=== PATIENT | male | born 1960 | race Caucasian/White ===

== ENCOUNTER 2020-02-06 23:15 | Observation (INO) ==
[2020-02-06] MEDS ORDERED: OPTIRAY 320 125ml IV PRN (23:33)
[2020-02-06 23:46] LABS: Basophils # (auto) 0.03 K/uL (0-0.2); Basophils % (auto) 0.4 %; Eosinophils # (auto) 0.35 K/uL (0-0.5); Eosinophils % (auto) 4.8 %; Hematocrit (blood only) 41.1 % (42-52); Hemoglobin 14.7 g/dL (14.0-18.0); Immature Granulocytes # (auto) 0.02 K/uL (0.00-0.02); Immature Granulocytes % (auto) 0.3 %; Lymphocytes # (auto) 1.81 K/uL (1.2-3.4); Lymphocytes % (auto) 24.7 %; Mean Corpuscular Hgb Conc 35.8 g/dL (32-36); Mean Corpuscular Volume 89.3 fL (80-100); Mean Platelet Volume 10.5 fL (7.4-10.4); Monocytes % (auto) 8.2 %; Neutrophils # (auto) 4.51 K/uL (1.4-6.5); Neutrophils % (auto) 61.6 %; Platelet Count 119 K/uL (130-400); White Blood Count 7.32 K/uL (4.8-10.8)
[2020-02-06] MEDS ORDERED: ASPIRIN CHEW 324 MG PO STA (23:51)
[2020-02-06] MEDS ORDERED: MAGNESIUM SULFATE / D5W 1 GM/100 ML BAG IV ONE (23:51)
[2020-02-06] MEDS ORDERED: SODIUM CHLORIDE 0.9% 1000ML 1,000 ML IV ONE (23:51)
[2020-02-06 23:55] LABS: iSTAT Creatinine 0.9 mg/dl (0.6-1.3); iSTAT Hemoglobin 13.9 g/dl (14.0-18.0); iSTAT Ionized Calcium 1.18 mmol/l (1.12-1.32); iSTAT Potassium 3.9 mmol/L (3.3-5.0)
--- NOTE | 2020-02-06 23:56 | Emergency Department Note ---
History of Present Illness General Chief complaint: Neuro Symptoms/Deficit Stated complaint: DIZZINESS,ONE SIDED WEAKNESS Time Seen by Provider: 02/06/20 23:24 Source: patient and RN notes reviewed Mode of arrival: ambulatory Limitations: no limitations History of Present Illness Provider complaint: Rt sided weakness Onset (ago): hour(s) greater than 10 Location: upper extremity, lower extremity and right Severity: moderate Associated symptoms: + other (difficulty speaking) Treatments prior to arrival: none This is a 59-year-old male who presents the emergency department complaining of right-sided weakness. The patient reports his weakness started approximately 12 hours ago. The patient is traveling up here from [place] for a visit. He reports he is a diabetic and takes insulin. The patient also reports he has been having difficulty getting words out. The patient has never had anything like this before. He does have a history of right knee replacement. Home Medications Home Medications Medication Instructions Recorded Confirmed Type atorvastatin 20 mg PO HS 02/07/20 02/07/20 History carvedilol 12.5 mg PO DAILY 02/07/20 02/07/20 History insulin glargine [Lantus Solostar 36 unit SUBCUT HS 02/07/20 02/07/20 History U-100 Insulin] losartan 100 mg PO DAILY 02/07/20 02/07/20 History metformin 2,000 mg PO HS 02/07/20 02/07/20 History pioglitazone [Actos] 30 mg PO DAILY 02/07/20 02/07/20 History Allergies Allergy/AdvReac Type Severity Reaction Status Date / Time No Known Allergies Allergy Unverified 02/07/20 00:35 Past Med/Surg History Surgical History (Updated 02/07/20 @ 00:00 by Vikram Reddy MD) Status post right knee replacement Social History Preferred Language: Thai Communication Ability: Effective [employer] Head Required: No Beliefs That Will Affect Care: None Current Living Situation: Alone Other Information That Helps Us Care for You: No Feels Safe at Home: Yes Safety Concerns: Feels Safe At This Time Smoking Status: Never smoker Hx Alcohol Use: No Hx Substance Use: No Review of Systems A total of 10 systems reviewed and were otherwise negative Physical Exam Vital Signs Vital Signs - 24 hr 02/06/20 23:18 02/06/20 23:27 02/06/20 23:35 Temperature 36.5 C Temperature Source Oral Pulse Rate 73 78 80 Pulse Rate from SpO2 Sensor Respiratory Rate 18 21 22 Respiratory Effort / Characteristics Non-Labored Spontaneous Respiratory Depth Normal Blood Pressure 175/108 H 180/118 H Blood Pressure Mean 130 143 Pulse Oximetry 94 Oxygen Delivery Method Room Air Sepsis Recent Fever Within 48 Hours No Sepsis Action Taken by Nursing No Action Required 02/06/20 23:40 02/06/20 23:41 02/06/20 23:59 Temperature Temperature Source Pulse Rate 72 80 Pulse Rate from SpO2 Sensor 72 Respiratory Rate 23 17 Respiratory Effort / Characteristics Respiratory Depth Blood Pressure 156/105 H Blood Pressure Mean 114 Pulse Oximetry 94 95 Oxygen Delivery Method Room Air Sepsis Recent Fever Within 48 Hours Sepsis Action Taken by Nursing 02/07/20 00:01 02/07/20 00:02 02/07/20 00:10 Temperature Temperature Source Pulse Rate 71 69 73 Pulse Rate from SpO2 Sensor 72 70 73 Respiratory Rate 16 19 16 Respiratory Effort / Characteristics Respiratory Depth Blood Pressure 183/96 H Blood Pressure Mean 112 Pulse Oximetry 96 95 96 Oxygen Delivery Method Room Air Sepsis Recent Fever Within 48 Hours Sepsis Action Taken by Nursing 02/07/20 00:20 02/07/20 00:30 02/07/20 00:40 Temperature Temperature Source Pulse Rate 71 74 75 Pulse Rate from SpO2 Sensor 71 74 77 Respiratory Rate 19 17 19 Respiratory Effort / Characteristics Respiratory Depth Blood Pressure 159/93 H Blood Pressure Mean 112 Pulse Oximetry 97 94 95 Oxygen Delivery Method Sepsis Recent Fever Within 48 Hours Sepsis Action Taken by Nursing 02/07/20 00:50 02/07/20 01:00 02/07/20 01:10 Temperature Temperature Source Pulse Rate 73 72 69 Pulse Rate from SpO2 Sensor 72 73 70 Respiratory Rate 15 16 24 Respiratory Effort / Characteristics Respiratory Depth Blood Pressure 156/91 H Blood Pressure Mean 114 Pulse Oximetry 94 94 96 Oxygen Delivery Method Sepsis Recent Fever Within 48 Hours Sepsis Action Taken by Nursing 02/07/20 01:21 Temperature Temperature Source Pulse Rate 71 Pulse Rate from SpO2 Sensor 71 Respiratory Rate 21 Respiratory Effort / Characteristics Respiratory Depth Blood Pressure Blood Pressure Mean Pulse Oximetry 96 Oxygen Delivery Method Sepsis Recent Fever Within 48 Hours Sepsis Action Taken by Nursing GENERAL: Patient is a healthy-appearing well-nourished male HEAD: Normocephalic atraumatic EYES: Ocular movements intact pupils equal and react to light OROPHARYNX mucous membranes are moist no exudates present no erythema or edema present NECK: Supple no nuchal rigidity CHEST: Good equal expansion LUNGS: Clear and equal to auscultation CARDIAC: Normal S1 and S2 ABDOMEN: Soft nontender no guarding BACK: No CVA tenderness EXTREMITIES: No pain upon palpation 4/5 strength Rt arm, Rt leg; in all groups no clubbing cyanosis or edema NEURO: Patient is following commands is answering questions appropriately. Alert and oriented x3 Cranial Nerves 2-12 grossly intact Course Administered Medications Sodium Chloride (Nss 1000ml) 1,000 mls @ 80 mls/hr IV .[id number] CNONIE Stop: 03/08/20 02:23 Last Admin: 02/07/20 03:15 Dose: 80 mls/hr Documented by: [id number] Discontinued Medications Aspirin (Aspirin) 324 mg PO NOW STA Stop: 02/06/20 23:52 Last Admin: 02/07/20 00:05 Dose: 324 mg Documented by: [id number] Magnesium Sulfate/Dextrose (Magnesium Sulfate / D5w) 1 gm in 100 mls @ 100 mls/ hr IV ONE ONE Stop: 02/07/20 00:50 Last Infusion: 02/07/20 01:02 Dose: 0 mls/hr Documented by: [id number] Admin: 02/07/20 00:05 Dose: 100 mls/hr Documented by: [id number] Sodium Chloride (Nss 1000ml) 1,000 mls @ 999 mls/hr IV .[id number] ONE Stop: 02/07/20 00:51 Last Infusion: 02/07/20 01:02 Dose: 0 mls/hr Documented by: [id number] Admin: 02/07/20 00:05 Dose: 999 mls/hr Documented by: [id number] Ioversol (Optiray 320 125ml) 119 ml IV ONCE PRN PRN Reason: Interaction Checking Stop: 02/10/20 23:32 Last Admin: 02/06/20 23:34 Dose: 119 ml Documented by: [id number] Medical Decision Making Differential Diagnosis Infection, dehydration, metabolic abnormality, hypo/hyperglycemia, electrolyte disturbance, anemia, hypoxia, cardiac sources, intracerebral event, toxicologic, neurologic, as well as other pathologies. Medical Records Attestation: I reviewed the patient's medical records. Home Medications Current Medication List: was personally reviewed by me Laboratory Data Attestation: I reviewed the patient's lab results. Result diagrams: 02/06/20 23:38 02/06/20 23:38 Lab Results 02/06/20 02/06/20 02/06/20 Range/Units 22:38 23:38 23:38 WBC 7.32 (4.8-10.8) K/uL RBC 4.60 L (4.7-6.1) M/uL Hgb 14.7 (14.0-18.0) g/dL POC Hgb (14.0-18.0) g/dl Hct 41.1 L (42-52) % POC Hct (42-52) % MCV 89.3 (80-100) fL MCH 32.0 (25-34) pg MCHC 35.8 (32-36) g/dL RDW Std Deviation 46.0 (36.4-46.3) fL RDW Coeff of Sathya 14.0 (11.5-14.5) % Plt Count 119 L (130-400) K/uL MPV 10.5 H (7.4-10.4) fL Immature Gran % (Auto) 0.3 % Neut % (Auto) 61.6 % Lymph % (Auto) 24.7 % Hardin % (Auto) 8.2 % Eos % (Auto) 4.8 % Baso % (Auto) 0.4 % Immature Gran # (Auto) 0.02 (0.00-0.02) K/uL Neut # (Auto) 4.51 (1.4-6.5) K/uL Lymph # (Auto) 1.81 (1.2-3.4) K/uL Hardin # (Auto) 0.60 H (0.11-0.59) K/uL Eos # (Auto) 0.35 (0-0.5) K/uL Baso # (Auto) 0.03 (0-0.2) K/uL PT 11.3 (9.0-12.0) Seconds INR 1.1 (0.9-1.1) APTT 30.3 (21.0-31.0) Seconds PTT Ratio 1.1 POC Sodium (135-144) mmol/L Sodium (136-145) mmol/L POC Potassium (3.3-5.0) mmol/L Potassium (3.5-5.1) mmol/L POC Chloride (101-112) mmol/L Chloride (98-107) mmol/L Carbon Dioxide (21-32) mmol/L POC Total CO2 (24-31) mEq/l Anion Gap (3-11) POC Anion Gap (16-25) mmol/L POC BUN (7-18) mg/dl BUN (7-18) mg/dl Creatinine (0.6-1.4) mg/dl POC Creatinine (0.6-1.3) mg/dl Est Cr Clr Drug Dosing ml/min Est GFR ( Amer) Est GFR (Non-Af Amer) BUN/Creatinine Ratio (10-20) Glucose (70-99) mg/dl POC Glucose (other) (70-99) mg/dl Calcium (8.5-10.1) mg/dl POC Ioniz Calcium Shantell (1.12-1.32) mmol/l Magnesium (1.8-2.4) mg/dl Total Bilirubin (0.2-1) mg/dl AST (15-37) U/L ALT (12-78) U/L Alkaline Phosphatase (45-117) U/L Total Creatine Kinase 89 (39-308) U/L CK-MB (CK-2) 1.2 (0.5-3.6) ng/ml CK/CKMB % Calc 1.3 (0-3.0) Troponin I (0-0.045) ng/ml Total Protein (6.4-8.2) gm/dl Albumin (3.4-5.0) gm/dl Globulin (2.5-4.0) gm/dl Albumin/Globulin Ratio (0.9-2) 02/06/20 02/06/20 Range/Units 23:38 23:42 WBC (4.8-10.8) K/uL RBC (4.7-6.1) M/uL Hgb (14.0-18.0) g/dL POC Hgb 13.9 L (14.0-18.0) g/dl Hct (42-52) % POC Hct 41 L (42-52) % MCV (80-100) fL MCH (25-34) pg MCHC (32-36) g/dL RDW Std Deviation (36.4-46.3) fL RDW Coeff of Sathya (11.5-14.5) % Plt Count (130-400) K/uL MPV (7.4-10.4) fL Immature Gran % (Auto) % Neut % (Auto) % Lymph % (Auto) % Hardin % (Auto) % Eos % (Auto) % Baso % (Auto) % Immature Gran # (Auto) (0.00-0.02) K/uL Neut # (Auto) (1.4-6.5) K/uL Lymph # (Auto) (1.2-3.4) K/uL Hardin # (Auto) (0.11-0.59) K/uL Eos # (Auto) (0-0.5) K/uL Baso # (Auto) (0-0.2) K/uL PT (9.0-12.0) Seconds INR (0.9-1.1) APTT (21.0-31.0) Seconds PTT Ratio POC Sodium 138 (135-144) mmol/L Sodium 137 (136-145) mmol/L POC Potassium 3.9 (3.3-5.0) mmol/L Potassium 3.8 (3.5-5.1) mmol/L POC Chloride 102 (101-112) mmol/L Chloride 105 (98-107) mmol/L Carbon Dioxide 26 (21-32) mmol/L POC Total CO2 24 (24-31) mEq/l Anion Gap 6.0 (3-11) POC Anion Gap 17.0 (16-25) mmol/L POC BUN 21 H (7-18) mg/dl BUN 22 H (7-18) mg/dl Creatinine 1.08 (0.6-1.4) mg/dl POC Creatinine 0.9 (0.6-1.3) mg/dl Est Cr Clr Drug Dosing 82.8 ml/min Est GFR ( Amer) 87.8 Est GFR (Non-Af Amer) 75.8 BUN/Creatinine Ratio 20.0 (10-20) Glucose 265 H (70-99) mg/dl POC Glucose (other) 280 H (70-99) mg/dl Calcium 8.8 (8.5-10.1) mg/dl POC Ioniz Calcium Shantell 1.18 (1.12-1.32) mmol/l Magnesium 1.7 L (1.8-2.4) mg/dl Total Bilirubin 0.9 (0.2-1) mg/dl AST 36 (15-37) U/L ALT 66 (12-78) U/L Alkaline Phosphatase 53 (45-117) U/L Total Creatine Kinase (39-308) U/L CK-MB (CK-2) (0.5-3.6) ng/ml CK/CKMB % Calc (0-3.0) Troponin I < 0.015 (0-0.045) ng/ml Total Protein 7.6 (6.4-8.2) gm/dl Albumin 3.9 (3.4-5.0) gm/dl Globulin 3.7 (2.5-4.0) gm/dl Albumin/Globulin Ratio 1.1 (0.9-2) Imaging Data Attestation: I personally reviewed and interpreted this imaging study as follows: My Impression: A 2 view of the chest was interpreted by me shows no evidence of pneumonia congestion or pneumothorax. Radiologist's Impression: CT of the head: There is a trace amount of mucosal thickening partially visualized on the right maxillary sinus. The remaining sinuses and mastoids are normal. There is no skull fracture or scalp hematoma. There is a normal gyral pattern of the brain. There is no mass lesion or midline shift. The ma-white matter differentiation is maintained. The ventricles are nondilated. There is no evidence of acute large vessel infarct or intracranial hemorrhage. CTA of the head: The distal internal carotid arteries are widely patent bilaterally. They wanted and 1 segments are widely patent. The distal vertebral arteries are tortuous but widely patent and the basilar artery is widely patent. The right P1 segment is small but present. The left P1 segment is hypoplastic. There is origin of both posterior and cerebral arteries from the anterior circulation. The visualized portions of the anterior middle and posterior cerebral arteries appear within normal limits. No aneurysm vascular malformation or arterial thrombus is seen. CTA of the neck: The aortic arch is widely patent with no aneurysm or dissection. The great vessels tortuous but widely patent arising off the arch. The common internal and external carotid arteries are widely patent bilaterally with only a tiny amount of calcified plaque in the left carotid bulb which does not narrow the lumen of the internal carotid artery. No stenosis or dissection is seen. The proximal vertebral arteries are partially obscured bilaterally. No focal stenosis or dissection is identified. Moderate degenerative changes throughout the mid to upper cervical spine. ECG Data Attestation: I personally reviewed and interpreted this ECG as follows: Indication: + weakness Rate (beats per minute): 79 Rhythm: + sinus with SA ECG Intervals/blocks: + Normal QT-c (472) ECG [place]: + Normal ECG ST segments: no ST depression and no ST elevation ECG Findings: + Q waves (Inferior) Blood Pressure Blood Pressure Findings: Elevated blood pressure Blood Pressure Disposition: elevated BP felt to be situational MDM Narrative This is a 59-year-old male who presents emergency department complaining of right arm weakness. The patient symptoms have been ongoing for the least 12 hours therefore I do not feel he is a candidate for TPA. Using shared medical decision making with the patient he was sent for CAT scan as well as a CTA of the head and neck. This does not show any acute abnormality. On my reexam ination the patient is still weak on the right side. He was given 1 g of magnesium as well as Tylenol. The patient was then sent for a MRI of the head. In addition I did discuss this patient's EKG with him over concerns he may have had a previous heart attack due to the Q waves in the inferior leads. I stressed the need for close follow-up with cardiology for this. I did discuss the case with the hospitalist service who did agree to admit the patient. Patient is in agreement with treatment plan. Impression & Plan Acute right-sided weakness, Acute hyperglycemia, Hypertension Discharge Plan Visit Data *Final* Discharge Date/Time: 02/07/20 02:13 Chief Complaint: Neuro Symptoms/Deficit Stated Complaint: DIZZINESS,ONE SIDED WEAKNESS ED Provider: Vikram Reddy Discharge Problem: Acute right-sided weakness, Acute hyperglycemia, Hypertension Patient Disposition: Admitted As Inpatient Discharge Instructions Interventions: ED Discharge Assessment Last Done: 02/07/20 02:13 Discharge Problem: Hypertension Qualifiers: Hypertension type: unspecified Qualified Code(s): I10 - Essential (primary) hypertension
[2020-02-06 23:57] LABS: INR 1.1 (0.9-1.1); Partial Thromboplastin Ratio 1.1; Partial Thromboplastin Time 30.3 Seconds (21.0-31.0); Prothrombin Time 11.3 Seconds (9.0-12.0)
[2020-02-07 00:03] LABS: Alanine Aminotransferase 66 U/L (12-78); Albumin Level 3.9 gm/dl (3.4-5.0); Aspartate Aminotransferase 36 U/L (15-37); Blood Urea Nitrogen 22 mg/dl (7-18); Calcium 8.8 mg/dl (8.5-10.1); Carbon Dioxide 26 mmol/L (21-32); Chloride 105 mmol/L (98-107); Creatinine Clr Calc Pharmacy 82.8 ml/min; Est GFR (African American) 87.8; Est GFR (Non-African American) 75.8; Glucose 265 mg/dl (70-99); Magnesium 1.7 mg/dl (1.8-2.4); Potassium 3.8 mmol/L (3.5-5.1); Sodium 137 mmol/L (136-145)
[2020-02-07 00:08] LABS: Albumin Globulin Ratio 1.1 (0.9-2); Alkaline Phosphatase 53 U/L (45-117); Bilirubin,Total 0.9 mg/dl (0.2-1); Globulin 3.7 gm/dl (2.5-4.0); Total Protein 7.6 gm/dl (6.4-8.2); Troponin I < 0.015 ng/ml (0-0.045)
[2020-02-07 00:37] LABS: Creatine Kinase MB 1.2 ng/ml (0.5-3.6)
[2020-02-07] MEDS ORDERED: POLYETHYLENE (MIRALAX) 17 GM PACK PO PRN (02:24)
[2020-02-07] MEDS ORDERED: SODIUM CHLORIDE 0.9% 1000ML 1,000 ML IV SCH (02:24)
[2020-02-07] MEDS ORDERED: NITROGLYCERIN SL 0.4 MG/TAB TAB SL PRN (02:24)
[2020-02-07] MEDS ORDERED: ACETAMINOPHEN 325 MG TAB PO PRN (02:24)
[2020-02-07] MEDS ORDERED: ONDANSETRON INJ 2 MG/ML 2 ML VIAL IV PRN (02:24)
[2020-02-07] MEDS ORDERED: PHARMACIST DISCHARGE MED REC CONSULT PRN (02:24)
[2020-02-07] MEDS ORDERED: DEXTROSE 50% 50 ML SYRINGE IV PRN (03:00)
[2020-02-07] MEDS ORDERED: CARBOHYDRATES FOR HYPOGLYCEMIA PO PRN (03:00)
[2020-02-07] MEDS ORDERED: GLUCOSE 40% GEL 15 GM TUBE PO PRN (03:00)
[2020-02-07] MEDS ORDERED: GLUCOSE 10 TABS/TUBE PO PRN (03:00)
[2020-02-07] MEDS ORDERED: GLUCAGON FOR INJ 1 MG VIAL SQ PRN (03:00)
--- NOTE | 2020-02-07 03:17 | History and Physical Report ---
DATE OF ADMISSION: 02/07/2020 CHIEF COMPLAINT: Stroke-like symptoms. HISTORY OF PRESENT ILLNESS: A 59-year-old male with past medical history significant for diabetes, hypertension, hyperlipidemia, morbid obesity, sleep apnea. He is coming from [place] to visit his friend, presents with right-sided weakness. The patient states since 02/06/2020 afternoon, he noticed right-sided weakness. He thought it will go away, it did not go away, so he came to the hospital. Initial workup, CT of the head and CTA of the head and neck, preliminary reports are unremarkable. The patient denies any other complaints. Resting comfortably and hemodynamically stable. Denies any headache, no dizziness, no blurred visions, no earache. He has some runny nose, but denies any sore throat, no cough, no fever, no chills, no shortness of breath. No dysphagia. He stated initially he had some difficulty speaking, but that has improved now, back to his normal. Appetite is good. Sleeping okay. No chest pain. No nausea, no vomiting, no abdominal pain, no diarrhea, no constipation, no blood in stools or black stools. Normal bladder movements. No rash. He says he walks and climbs steps okay. Say, he checks his sugars daily at home and he also checks his blood pressure and he states the blood pressure usually runs high. ALLERGIES: No known drug allergies. PAST MEDICAL HISTORY: As mentioned above. PAST SURGICAL HISTORY: Knee surgeries and elbow surgeries. MEDICATIONS: The patient is on atorvastatin 20 mg p.o. at bedtime, Coreg 12.5 mg p.o. daily, Lantus 36 units at bedtime, losartan 100 mg p.o. daily, [id number] mg p.o. at bedtime, Actos 30 mg p.o. daily. FAMILY HISTORY: Father of asbestosis disease. SOCIAL HISTORY: Lives alone, currently visiting from [place]. No smoking history. No alcohol, no drug use. REVIEW OF SYSTEMS: As per HPI. Rest of the review of systems negative. PHYSICAL EXAMINATION: GENERAL: The patient is morbidly obese, not in acute distress. VITAL SIGNS: Temperature 36.5, pulse 69, respiratory rate 19, blood pressure 183/96, oxygen 95% on room air. HEENT: No pallor, no icterus. Atraumatic. Extraocular muscles intact. NECK: No JVD, no neck masses. Supple. CARDIOVASCULAR: S1, S2 heard, regular rate and rhythm, no murmur, no gallop. RESPIRATORY SYSTEM: Normal AP diameter. No accessory muscle use. No wheezing, no crackles. ABDOMEN: Soft, bowel sounds present, nontender. No distention. CENTRAL NERVOUS SYSTEM: Cranial nerves II-XII grossly intact. Power 4/5 in the right upper extremity and3/5 in the right lower extremity and 5/5 in left extremities. No pronator drift. Not able to lift and hold his right lower extremity. Sensation is intact. Coordination of movements normal. Speech is clear. EXTREMITIES: Bilateral lower extremity mild edema seen, no erythema seen. LABORATORY DATA: WBC 7.3, hemoglobin 14.7, hematocrit 41.1, platelets 119. PT 11.3, INR 1.1, APTT 30.3. Sodium 137, potassium 3.8, chloride 105, bicarbonate 26, BUN 22, creatinine 1.08, calcium 8.8, magnesium 1.7, total bilirubin 0.9, AST 36, ALT 66, alkaline phosphatase 53, total creatine kinase 89. Troponin I less than 0.015. IMAGING DATA: Chest x-ray, no acute findings. CT of the head and CTA of the head and neck unremarkable. No acute findings. EKG: normal sinus rhythm with sinus arrhythmia at a rate of 79. T-wave inversions in the inferior leads. ASSESSMENT AND PLAN: This is a 59-year-old male who presents with right-sided weakness. 1. Right-sided weakness. Possible CVA. Symptoms started around afternoon. Around noon time on 02/06/2020, Initial workup with CT of the head and CTA of the head and neck were unremarkable. stroke workup with MRI of the head and echocardiogram. Speech therapy evaluation and neuro consult in the a.m. for further recommendation. Monitor in tele floor. Received full dose aspirin in the ER,. baby aspirin in am. Continue his home statin. Follow the lipid profile. 2. HTN on Coreg and losartan.once daily. Permissive hypertension until mri scan is back for any stroke Monitor his blood pressure. 3. History of diabetes. Continue home Lantus. Hold metformin and Actos. Placed on insulin sliding scale. Follow HbA1c. Will follow the blood sugars. 4. Hyperlipidemia, continue statin. Follow the lipid profile. 5. History of sleep apnea. CPAP at bedtime. 6. History of morbid obesity, counseling. 7. Deep venous thrombosis prophylaxis, sequential compression devices for now. DISPOSITION: Closely monitor in tele floor. Level 1 full code. PT and OT prior to discharge. Social service to help with discharge planning. CARMINA
[2020-02-07] MEDS ORDERED: PERFLUTREN LIPID MICROSPHERE (DEFINITY) IV ONE (07:06)
--- NOTE | 2020-02-07 07:18 | Magnetic Resonance Report ---
MRI OF THE BRAIN WITHOUT CONTRAST CLINICAL HISTORY: Right-sided weakness. COMPARISON STUDY: Head CT and CTA of the head performed earlier today. TECHNIQUE: Utilizing a 1.5 Ange magnet and dedicated coil, multiplanar, multiecho imaging of the bra in was performed without IV contrast. FINDINGS: Note is made of several acute small infarcts within left aspect of the herrera. No mass effect or hemorrhage is noted. Ventricular system is normal. Basilar cisterns are patent. There are no extr a-axial collections. Flow-voids for the major intracranial vessels are present. Scattered white matte r T2 hyperintense foci are noted. Note is made of mucosal thickening and a small air-fluid level with in the right maxillary sinus which is diminutive. There is mild ethmoid sinus mucosal thickening. IMPRESSION: Several small acute infarcts within left aspect of the herrera. No mass effect or hemorrhag e. ACT 112: Negative or not required by law. Electronically signed by: Demarcus Herrera M.D. 02/07/2020 7:16 AM
[2020-02-07 07:32] LABS: Basophils # (auto) 0.05 K/uL (0-0.2); Basophils % (auto) 0.8 %; Eosinophils # (auto) 0.33 K/uL (0-0.5); Hematocrit (blood only) 40.8 % (42-52); Immature Granulocytes # (auto) 0.02 K/uL (0.00-0.02); Immature Granulocytes % (auto) 0.3 %; Lymphocytes # (auto) 1.72 K/uL (1.2-3.4); Lymphocytes % (auto) 26.3 %; Mean Corpuscular Hemoglobin 30.9 pg (25-34); Mean Corpuscular Hgb Conc 34.3 g/dL (32-36); Mean Corpuscular Volume 90.1 fL (80-100); Mean Platelet Volume 10.1 fL (7.4-10.4); Monocytes # (auto) 0.52 K/uL (0.11-0.59); Monocytes % (auto) 7.9 %; Neutrophils # (auto) 3.91 K/uL (1.4-6.5); Neutrophils % (auto) 59.7 %; Platelet Count 104 K/uL (130-400); RDW Coefficient of Variation 14.1 % (11.5-14.5); RDW Standard Deviation 46.3 fL (36.4-46.3); Red Blood Count 4.53 M/uL (4.7-6.1); White Blood Count 6.55 K/uL (4.8-10.8)
--- NOTE | 2020-02-07 07:35 | CT Scan Report ---
CT OF THE HEAD WITHOUT CONTRAST CLINICAL HISTORY: Stroke evaluation. Right-sided weakness. COMPARISON STUDY: No previous studies for comparison. TECHNIQUE: Helical axial images of the head were obtained without IV contrast. Automated exposure con trol was utilized for the study. A dose lowering technique was utilized adhering to the principles o f ALARA. FINDINGS: No acute intracranial hemorrhage, midline shift or mass effect is present. The ventricular system is unremarkable. The basilar cisterns are patent. No extra-axial collections are present. Ther e are no findings to suggest acute dural sinus thrombosis or acute territorial infarct. No significan t calvarial abnormalities are present. Tiny air-fluid level within visualized portions of the right m axillary sinus is noted. IMPRESSION: No acute intracranial findings. ACT 112: Negative or not required by law. Electronically signed by: Demarcus Herrera M.D. 02/07/2020 7:33 AM
--- NOTE | 2020-02-07 07:37 | XRay Report ---
XR chest 1V portable CLINICAL HISTORY: Right-sided weakness. COMPARISON STUDY: No previous studies for comparison. FINDINGS: Lung volumes are normal. There is no pneumothorax or pleural effusion. There is no evidence for pulmonary edema. There is pulmonary vascular congestion. Mild cardiomegaly is noted. IMPRESSION: 1. Mild cardiomegaly. 2. Pulmonary vascular congestion without overt pulmonary edema. ACT 112: Negative or not required by law. Electronically signed by: Demarcus Herrera M.D. 02/07/2020 7:36 AM
--- NOTE | 2020-02-07 07:43 | CT Scan Report ---
CT ANGIOGRAPHY OF THE NECK WITH CONTRAST CLINICAL HISTORY: Stroke evaluation. Right-sided weakness. Slurred speech. COMPARISON STUDY: No previous studies for comparison. Technique: CT angiography of the carotid and vertebral arteries was obtained using [employer] 320 IV and 3D reconstruction on an independent workstation. NASCET criteria was utilized. Automated exposure c ontrol was utilized for the study. A dose lowering technique was utilized adhering to the principles of ALARA. CT DOSE: 1453.56 mGy.cm Findings: Lung apices are clear. There is no cervical lymphadenopathy. No cervical spine fracture is noted. Moderate multilevel degenerative changes within the cervical spine are noted. The bilateral co mmon carotid, cervical internal carotid and vertebral arteries are patent. There is minimal plaque wi thin the proximal left internal carotid artery. There is no stenosis or dissection within the major v essels of the neck. No aneurysm formation is noted. Bilateral vertebral arteries are suboptimally ass essed given artifact on this examination. Left maxillary sinus mucosal thickening and a tiny right ma xillary sinus air-fluid level or noted. IMPRESSION: Unremarkable CTA of the neck. No stenosis or dissection. ACT 112: Negative or not required by law. Electronically signed by: Demarcus Herrera M.D. 02/07/2020 7:41 AM
--- NOTE | 2020-02-07 07:45 | CT Scan Report ---
CTA ANGIOGRAPHY OF THE HEAD CLINICAL HISTORY: Stroke evaluation COMPARISON STUDY: No previous studies for comparison. TECHNIQUE: Helical axial images of the head were obtained following uneventful intravenous administr ation of 119 cc of Optiray 320. Sagittal and coronal reconstructions were viewed as well as maximal i ntensity projections on an independent 3-D workstation. Automated exposure control was utilized for the study. A dose lowering technique was utilized adhering to the principles of ALARA. FINDINGS: No acute intracranial hemorrhage, midline shift or mass effect is present. Ventricular syst em is normal. Basilar cisterns are patent. There are no extra-axial collections. The bilateral M1, M2 , A1 and A2 segments are patent. There is minimal plaque within the left supraclinoid ICA. There is n o stenosis or dissection within the major intracranial vessels. There are large bilateral posterior c ommunicating arteries. No intraluminal thrombus or abrupt vessel cut off is identified. Bilateral max illary sinus mucosal thickening and a tiny air-fluid level within the right maxillary sinus are incid entally noted. IMPRESSION: Unremarkable CTA of the head. ACT 112: Negative or not required by law. Electronically signed by: Demarcus Herrera M.D. 02/07/2020 7:44 AM
[2020-02-07 08:03] LABS: BUN Creatinine Ratio 19.5 (10-20); Calcium 8.6 mg/dl (8.5-10.1); Creatinine Clr Calc Pharmacy 145.5 ml/min; Est GFR (African American) 109.5; Est GFR (Non-African American) 94.5; Magnesium 1.9 mg/dl (1.8-2.4); Potassium 3.9 mmol/L (3.5-5.1)
--- NOTE | 2020-02-07 08:30 | Hospitalist Progress Note ---
Date of Service February 07, 2020 Assessment & Plan (1) CVA (cerebral vascular accident): (2) Acute right-sided weakness: (3) Acute hyperglycemia: (4) Hypertension: (5) Diabetes: ASA, continue statin, DC later today if OK c Neurology Labs checked Admission and Anticipated Discharge Date Admission Date: February 07, 2020 Results & Data Results & Data ([facility]) Vital Signs (Past 12 Hours) Vital Signs Temp Pulse Pulse Resp BP BP Pulse Ox 02/07/20 07:51 36.6 C 69 22 163/94 H 98 02/07/20 07:44 57 L 02/07/20 03:06 67 02/07/20 03:03 66 12 96 02/07/20 02:20 36.5 C 68 22 136/78 99 02/07/20 01:30 68 23 145/85 H 94 02/07/20 01:21 71 21 96 02/07/20 01:10 69 24 96 02/07/20 01:00 72 16 156/91 H 94 02/07/20 00:50 73 15 94 02/07/20 00:40 75 19 95 02/07/20 00:30 74 17 159/93 H 94 02/07/20 00:20 71 19 97 02/07/20 00:10 73 16 96 02/07/20 00:02 69 19 95 02/07/20 00:01 71 16 183/96 H 96 02/06/20 23:59 80 17 156/105 H 95 02/06/20 23:41 94 02/06/20 23:40 72 23 02/06/20 23:35 80 22 02/06/20 23:27 78 21 180/118 H 02/06/20 23:18 36.5 C 73 18 175/108 H 94 (1) Hypertension Hypertension type: unspecified Qualified Code(s): I10 - Essential (primary) hypertension
[2020-02-07] MEDS: INSULIN ASPART 100 UNITS/ML 3 ML PEN SC SCH ×2 (08:34→11:45)
[2020-02-07] MEDS ORDERED: LOSARTAN POTASSIUM 50 MG TAB PO SCH (09:00)
[2020-02-07] MEDS ORDERED: ASPIRIN 81 MG ECTAB PO SCH (09:00)
[2020-02-07] MEDS ORDERED: carvediloL 12.5 MG TAB PO SCH (09:00)
[2020-02-07 09:16] LABS: Chol HDL Ratio 4; Cholesterol 141 mg/dl (0-200); HDL Cholesterol 32 mg/dl; LDL Cholesterol Calculated 72 mg/dl; Triglycerides 184 mg/dl (0-150); VLDL Cholesterol 37 mg/dl
--- NOTE | 2020-02-07 10:12 | Electrocardiogram Report ---
Test Reason : Blood Pressure : / mmHG Vent. Rate : 079 BPM Atrial Rate : 079 BPM P-R Int : 200 ms QRS Dur : 110 ms QT Int : 412 ms P-R-T Axes : 065 -64 064 degrees QTc Int : 472 ms Normal sinus rhythm with sinus arrhythmia Incomplete right bundle branch block Left anterior fascicular block Abnormal ECG No previous ECGs available Confirmed by Luis Manuel Salazar ([id number]) on 02/07/2020 10:12:15 AM Referred By: REFERRED SELF Confirmed By:Luis Manuel Salazar
--- NOTE | 2020-02-07 11:14 | Discharge Summary ---
Date of Service February 07, 2020 Admission HPI Per Admitting Provider 59-year-old male with past medical history significant for diabetes, hypertension, hyperlipidemia, morbid obesity, sleep apnea. He is coming from [place] to visit his friend, presents with right-sided weakness. The patient states since 02/06/2020 afternoon, he noticed right-sided weakness. He thought it will go away, it did not go away, so he came to the hospital. Initial workup, CT of the head and CTA of the head and neck, preliminary reports are unremarkable. The patient denies any other complaints. Resting comfortably and hemodynamically stable. Denies any headache, no dizziness, no blurred visions, no earache. He has some runny nose, but denies any sore throat, no cough, no fever, no chills, no shortness of breath. No dysphagia. He stated initially he had some difficulty speaking, but that has improved now, back to his normal. Appetite is good. Sleeping okay. No chest pain. No nausea, no vomiting, no abdominal pain, no diarrhea, no constipation, no blood in stools or black stools. Normal bladder movements. No rash. He says he walks and climbs steps okay. Say, he checks his sugars daily at home and he also checks his blood pressure and he states the blood pressure usually runs high. Admission Exam Per Admitting Provider GENERAL: The patient is morbidly obese, not in acute distress. VITAL SIGNS: Temperature 36.5, pulse 69, respiratory rate 19, blood pressure 183/96, oxygen 95% on room air. HEENT: No pallor, no icterus. Atraumatic. Extraocular muscles intact. NECK: No JVD, no neck masses. Supple. CARDIOVASCULAR: S1, S2 heard, regular rate and rhythm, no murmur, no gallop. RESPIRATORY SYSTEM: Normal AP diameter. No accessory muscle use. No wheezing, no crackles. ABDOMEN: Soft, bowel sounds present, nontender. No distention. CENTRAL NERVOUS SYSTEM: Cranial nerves II-XII grossly intact. Power 4/5 in the right upper extremity and3/5 in the right lower extremity and 5/5 in left extremities. No pronator drift. Not able to lift and hold his right lower extremity. Sensation is intact. Coordination of movements normal. Speech is clear. EXTREMITIES: Bilateral lower extremity mild edema seen, no erythema seen. Principal Diagnosis (1) CVA (cerebral vascular accident): (2) Acute right-sided weakness: (3) Acute hyperglycemia: (4) Hypertension: (5) Diabetes: Discharge Exam Physical Exam Gen-AAO x 3, NAD, Afebrile Head-NCAT, EOMI, PERRLA, Anicteric Sclera, No Posterior Pharyngeal Erythema Neck-Supple, No JVD, No Thyromegaly, No Masses, No LAD, No Bruits Lungs-Clear to Auscultation Bilaterally, No Rales, No Rhonchi, No Wheezing, No Crepitus Chest-No S4, +S1, +S2, No S3, No Murmurs, No Rubs, No Gallops, No Ectopy Abdomen-Soft, Bowel Sounds Present, Non Tender, Non Distended, No Hepatomegaly, No Splenomegaly, No Palpable Masses, No Rebound, No Rigidity, No Guarding Musculoskeletal-Full Range of Motion Bilaterally, No CVAT Extremities-No Cyanosis, No Clubbing, No Edema Nuero-Cranial Nerves II-XII grossly intact, Motor WNL, DTRs WNL, Strength WNL, Non Focal Psych-Normal Mood Discharge Data Allergies Allergy/AdvReac Type Severity Reaction Status Date / Time No Known Allergies Allergy Unverified 02/07/20 00:35 Consultations 02/07/20 00:54 ED Decision to Admit Stat 02/07/20 02:24 Consult Case Management - Discharge Planning Routine Consult Case Management - Discharge Planning Routine 02/07/20 08:00 Consult Neurology Routine Ordered Studies 02/06/20 23:26 CT angio head w con Stat CT angio neck with con Stat CT head/brain wo con Stat 02/07/20 00:10 MR brain wo con Stat-Several small acute infarcts within left aspect of the herrera. No mass effect or hemorrhage Current Diagnoses Type 2 diabetes mellitus without complications (02/07/20) Essential (primary) hypertension (02/07/20) Cerebral infarction, unspecified (02/07/20) Weakness (02/07/20) Hyperglycemia, unspecified (02/07/20) Allergies No Known Allergies Allergy (Unverified 02/07/20 00:35) Height/Weight/Isolation Height 6 ft Weight 167.5 kg Chemistry 02/06/20 02/07/20 23:38 07:19 Sodium 137 139 Potassium 3.8 3.9 Chloride 105 108 H Carbon Dioxide 26 27 Anion Gap 6.0 5.0 BUN 22 H 18 Creatinine 1.08 0.90 Glucose 265 H 154 H Hospital Course (1) CVA (cerebral vascular accident): (2) Acute right-sided weakness: (3) Acute hyperglycemia: (4) Hypertension: (5) Diabetes: ASA & Plavix x 3 weeks, then DC Plavix, continue ASA, continue statin, DC today, No driving until cleared by PCP, Outpatient Recovery Room Nurse for 14 days to be ordered by Primary Dr, Outpatient PT/OT Per Primary Dr, Copy chart for [place] Echo EF 55-60%, no interatrial Shunt, EKG Sinus, Sinus Arrhythmia, LAFB, Incomplete RBBB Total Time Total Time Spent Total Time Spent (In Minutes): 45 mins Total Time Includes: Examination of the Patient, Discharge Planning, Medication Reconciliation and Communication With Other Providers Discharge Plan Discharge Items Patient Disposition: Home - Self-Care Reason For Visit: RIGHT-SIDED WEAKNESS Discharge Diagnosis: (1) CVA (cerebral vascular accident): (2) Acute right-sided weakness: (3) Acute hyperglycemia: (4) Hypertension: (5) Diabetes: Condition on Discharge: Good Health Concerns: No driving until cleared by your primary care doctor Activity: Resume your previous activity Lifting: None Bathing: No limitations Sexual Activity: When tolerated Exercise/Sports: None Driving/Machine Use: Resume when cleared by primary care Dr Weightbearing: Full weightbearing Non-emergency contact: Primary Care Provider and Neurologist Call non-emergency contact if: you have any medication questions and your symptoms worsen Follow-up/Referrals: PCP,NO [Primary Care Provider] - Diet: Carb Consistent or DM2 and Heart Healthy Addtl Attending Provider Instructions: -Follow up with primary care Dr tomorrow -No Driving until cleared by your primary care Dr -Primary Care Dr needs to order outpatient Physical and Occupational Therapy Evaluation and Treatment -Primary Care provider needs to order a classroom monitor to wear for 2 weeks -Give a copy of these discharge instructions to your primary Dr Pending Studies at Discharge: No Stand-Alone Forms: My [employer], Smoking Cessation Medications and DC Order Prescriptions: New aspirin 81 mg Tablet,Delayed Release (Dr/Ec) 81 mg PO QAM Qty: 100 RF: 0 clopidogrel [Plavix] 75 mg tablet 75 mg PO DAILY Qty: 21 RF: 0 Continued carvedilol 12.5 mg Tablet 12.5 mg PO DAILY RF: 0 pioglitazone [Actos] 30 mg Tablet 30 mg PO DAILY RF: 0 atorvastatin 20 mg Tablet 20 mg PO HS RF: 0 losartan 100 mg Tablet 100 mg PO DAILY RF: 0 metformin 1,000 mg Tablet 2,000 mg PO HS RF: 0 Lantus Solostar U-100 Insulin 100 unit/mL (3 mL) Insulin Pen 36 unit SUBCUT HS RF: 0 Discharge Orders: Discharge Order (Routine); Ordered 02/07/20 Ordered By: Nikita Wright Admission Data Admit Date/Time: 02/07/20 01:25 Attending Provider: Nikita Wright Admit Provider: Paulie Tim Primary Care Provider: PCP,NO Other Providers: Paulie Tim ; Mirta Obrien ; Pantera Lowe ; Mirta Christy ; John Lacey.
[2020-02-07] MEDS ORDERED: STROKE PATIENT DISCHARGE STA (11:34)
--- NOTE | 2020-02-07 12:07 | Pharmacy Report ---
Pharmacist Stroke Counseling - Date of Service February 07, 2020 - Scope: Pharmacy has been consulted to provide medication discharge counseling for this patient admitted with ischemic stroke as per the Pharmacist Discharge Counseling for Stroke Patients Protocol. - Medications on Discharge: Home Medications Medication Instructions Recorded Confirmed atorvastatin 20 mg PO HS 02/07/20 02/07/20 carvedilol 12.5 mg PO DAILY 02/07/20 02/07/20 insulin glargine [Lantus Solostar 36 unit SUBCUT HS 02/07/20 02/07/20 U-100 Insulin] losartan 100 mg PO DAILY 02/07/20 02/07/20 metformin 2,000 mg PO HS 02/07/20 02/07/20 pioglitazone [Actos] 30 mg PO DAILY 02/07/20 02/07/20 New Rx's Medication Instructions Recorded aspirin 81 mg PO QAM #100 tab 02/07/20 clopidogrel [Plavix] 75 mg PO DAILY #21 tab 02/07/20 - Action: The above medications, specifically ones for stroke treatment/prophylaxis, have been reviewed in detail with the patient and/or patient mortician supplies sales representative(s) prior to discharge. This includes indication, common adverse reactions, drug interactions, and medication administration. Medication counseling has been employed using the teach-back method to ensure understanding. - Outcome: The patient and/or patient mortician supplies sales representative(s) have demonstrated understanding of the medications. Please note, they are aware that the pharmacist will call them within 72 hours post-discharge to confirm that the appropriate medications are being taken and answer any further medication related questions the patient might have at that time. Contact information Individual to be contacted: Gray Lopez Relationship to patient (if applicable): self Phone number: (cell) [phone] Best time to call: any Additional comments: Pt was visiting from [place] Thank you for allowing pharmacy to be involved in the care of this patient. Please call [phone] or [phone] with any additional questions
--- NOTE | 2020-02-07 12:49 | Consultation Report ---
DATE OF CONSULTATION: 02/07/2020 REASON FOR CONSULTATION: Possible stroke. HISTORY OF PRESENT ILLNESS: The patient is a 59-year-old right-handed male with a history of hypertension, diabetes, hyperlipidemia and sleep apnea. He was in his usual state of health yesterday traveling from [place] to [place] when he became nonspecifically dizzy and off balance and noted right-sided weakness, clumsiness and numbness. There was some transient slurred speech. Symptoms persisted for more than 6 hours, so he came to the Emergency Room for further evaluation. He has no prior history of transient ischemic attack, stroke, cancer, DVT, PE, rheumatic fever or murmur. He has no family history of stroke. He has otherwise been well other than a month ago having sepsis from a skin infection on his buttock. He indicates that he took several days of intravenous antibiotics while hospitalized followed by oral antibiotics. He has not been febrile. He has had no recent head or neck injury, chiropractic manipulation of the neck, or medical or dental procedures. He has not had any fevers, chills, sweats, chest pain, palpitations, or shortness of breath. No anosmia, no ageusia. No cough. On initial evaluation in the Emergency Room, he was mildly hypertensive at 159/93. His lab work was notable for red count of 4.6, hemoglobin 13.9, hematocrit 41.1, and platelet count 119. PT, PTT normal. Electrolytes unremarkable. Blood sugar 265, magnesium 1.7, LDL 72, triglycerides 184. CT of the head noncontrast was unremarkable. CTA of the head and neck showed no significant stenosis or aneurysmal dilatation. MRI of the brain, which I reviewed, showed several small acute infarcts within the left aspect of the herrera. Scattered white matter T2 hyperintensities were noted. EKG was said to be sinus. Echocardiogram showed moderate concentric left ventricular hypertrophy, ejection fraction of 55%-60%, left atrium mildly dilated. Injection of contrast documented no intraatrial shunt. PAST MEDICAL HISTORY: As above. PAST SURGICAL HISTORY: Multiple knee surgeries and elbow surgeries. HOME MEDICATIONS: Atorvastatin 20 mg, Coreg 12.5 mg once a day, insulin, losartan, metformin, and Actos. FAMILY HISTORY: No family history of stroke. Father related to asbestosis. SOCIAL HISTORY: The patient does not smoke or drink. Works as a government contractor, lives alone, visiting from [place]. REVIEW OF SYSTEMS: As above. PHYSICAL EXAMINATION: VITAL SIGNS: 156/92, 75, 20, 36.8, 95%. GENERAL: The patient is awake and alert. His speech is nondysarthric. His affect is appropriate. He is oriented x3 and does not have any right/left confusion. The patient is morbidly obese. He is in no distress. NECK: There are no carotid bruits. HEART: No heart murmurs are appreciable. Heart has regular rate and rhythm. No dyspnea at rest. EXTREMITIES: Radial pulses are intact. Venous stasis changes are noted in the bilateral lower extremities, no calf swelling or tenderness is appreciated. NEUROLOGIC: Pupils are equal, round, and reactive to light. There may be some minor nystagmus on extreme of left lateral gaze. There are no extraocular muscle palsies. There are normal visual simon. There is normal facial sensation. There may be some minor right ptosis, which more than likely is senile. Face is otherwise symmetric. Tongue may deviate marginally to the left. Gag is symmetric bilaterally. Motor: Mild weakness of right home health clinician strength and right deltoid. Right lower extremity, left upper and left lower are normal. There is a right drift. There is some loss of cerebellar check. There is decreased rapid alternating movements. Hrtidp-uu-edvp is clumsy in the right upper extremity. There is dysdiadochokinesia. Qozy-uv-zwan is symmetric bilaterally. Reflexes are symmetric with the exception of the right ankle jerk being brisker than the left. There is nonsustained clonus in the right lower extremity. Toes are downgoing. Sensation is intact to light touch and temperature bilaterally. Gait is mildly wide based and mildly unsteady. IMPRESSION: Left pontine infarction, likely lacunar. PLAN: Dual antiplatelet therapy with aspirin 81 mg and Plavix 75 mg daily for 3 weeks and then discontinue Plavix. It may be judicious to monitor the patient's platelet count as it is mildly low. The patient will monitor for signs or symptoms such as excessive bleeding or bruising, nosebleeds or rectal bleeding. This was conveyed to the patient. Lipid profile is currently appropriate. Gradual reduction of blood pressure to normotension. Better control of diabetes. I did not explore with the patient whether or not he is being currently treated for obstructive sleep apnea and whether or not he is compliant with CPAP. This should be explored through primary care. I would recommend that primary care perform a 2-week career center director. It is unlikely that this is cardioembolic, but I think it is reasonable to be thorough. I think the patient is safe to return to his home to his sister's home. I have advised that he not drive until he is cleared by primary care. He will need outpatient physical and occupational therapy.
[2020-02-07] MEDS ORDERED: INSULIN GLARGINE SOLOSTAR 100 UNITS/ML 3 ML PEN SQ SCH (21:00)
[2020-02-07] MEDS ORDERED: ATORVASTATIN 20 MG TAB PO SCH (21:00)
[2020-02-08 07:15] LABS: Estimated Average Glucose 263 mg/dl; Hemoglobin A1C 10.8 % (4.5-5.6)
--- NOTE | 2020-02-09 10:15 | Pharmacy Report ---
Pharmacist Post D/C Phone Note - Phone Note: Date of phone call: February 09, 2020. The patient and/or patient containers sales representative(s) were unable to be reached for a follow-up phone call within the 72 hour time frame. Discharge counseling pharmacist contact information has already been provided to the patient should questions arise. Thank you for allowing us to be involved in the care of this patient. - Home Medications: Home Medications Medication Instructions Recorded Confirmed Lantus Solostar U-100 Insulin 36 unit SUBCUT 02/07/20 02/07/20 atorvastatin 20 mg PO HS 02/07/20 02/07/20 carvedilol 12.5 mg PO DAILY 02/07/20 02/07/20 losartan 100 mg PO DAILY 02/07/20 02/07/20 metformin 2,000 mg PO HS 02/07/20 02/07/20 pioglitazone [Actos] 30 mg PO DAILY 02/07/20 02/07/20 New Rx's Medication Instructions Recorded aspirin 81 mg PO QAM #100 tab 02/07/20 clopidogrel [Plavix] 75 mg PO DAILY #21 tab 02/07/20
--- NOTE | 2020-02-09 10:50 | Pharmacy Report ---
Pharmacist Post D/C Phone Note - Phone Note: Date of phone call: February 09, 2020. Individual with whom pharmacist spoke to: JOHANA MAGUIRE The following questions were reviewed during the phone call with responses listed below each: Can you tell me the medications that you are currently taking as well as when and how you take each medication? -See Table Below When have you missed any doses of your medications? - NONE What side effects are you having from your medications, specifically, the new medications you were started on? - NONE What questions do you have about your medications? - NONE What problems are you having obtaining your medications? - NONE When is your next appointment with your primary care doctor? - TOMORROW AT 2 PM Additional comments: - N/A As per the Pharmacist Discharge Counseling for Stroke Patients Protocol, this phone call has been completed within 72 hours of discharge. Thank you for allowing us to be involved in the care of this patient. - Home Medications: Home Medications Medication Instructions Recorded Confirmed Lantus Solostar U-100 Insulin 36 unit SUBCUT HS 02/07/20 02/07/20 atorvastatin 20 mg PO HS 02/07/20 02/07/20 carvedilol 12.5 mg PO DAILY 02/07/20 02/07/20 losartan 100 mg PO DAILY 02/07/20 02/07/20 metformin 2,000 mg PO HS 02/07/20 02/07/20 pioglitazone [Actos] 30 mg PO DAILY 02/07/20 02/07/20 New Rx's Medication Instructions Recorded aspirin 81 mg PO QAM #100 tab 02/07/20 clopidogrel [Plavix] 75 mg PO DAILY #21 tab 02/07/20
== END 2020-02-07 13:39 | disposition home or self-care (01) ==
LOC: ED 23:15 → 2S 02-07 01:25 → INTOOBSV 02-07 01:25 → 2S 02-07 02:13